=== PATIENT | male | born 1945 | race Caucasian/White ===

== ENCOUNTER 2023-01-06 11:05 | Inpatient (IN) ==
--- NOTE | 2022-12-18 14:38 | PAT Medication Instructions ---
Medication Instructions Date of Service December 18, 2022 Home Medications atorvastatin 20 mg tablet 20 mg PO PM hydrochlorothiazide 25 mg tablet 25 mg PO QAM multivitamin 1 tab PO QAM omega 0-zix-nor-fish oil 1,000 mg (120 mg-180 mg) capsule (Fish Oil) 1 cap PO QAM valsartan 80 mg tablet (Diovan) 160 mg PO QAM STOP taking 2 weeks before surgery omega 3-qoy-ymh-fish oil 1,000 mg (120 mg-180 mg) capsule (Fish Oil) 1 cap PO QAM DO NOT take the morning of surgery hydrochlorothiazide 25 mg tablet 25 mg PO QAM multivitamin 1 tab PO QAM valsartan 80 mg tablet (Diovan) 160 mg PO QAM Take evening before surgery atorvastatin 20 mg tablet 20 mg PO PM OTHERWISE NOTHING TO EAT OR DRINK AFTER MIDNIGHT Other Notes If you have any questions please call us at [phone] or [phone] or [phone] or [phone]
--- NOTE | 2022-12-23 14:38 | Anesthesiology Consultation ---
Date of Service December 23, 2022 Assessment & Plan (1) Encounter for pre-operative examination: - check BMP STAT am DOS. - anemia, creatinine 1.5 with no previous comparison or listed CKD. Case discussed in detail with Dr. Baxter who advised pt is acceptable to proceed from his standpoint, advised repeat BMP am DOS. PAT testing to be faxed to PCP for continuity of care. - potential difficult intubation: s/p cervical spine fusion. Chart Review Chart Review: Acceptable Risk for Surgery and Patient seen in Pre Admission Testing Teaching & Discussion Pre-Anesthesia Teaching/Discussion Notes: Instructed NPO after midnight before surgery, except medications with 15 cc of water. Medication instructions provided according to the PAT guidelines. History Surgery Operation Date: 01/06/23 12:55 Proposed Procedures p L4-L5 Decompression and Fusion, Spinal Cord Monitoring - Jorge A Garcia DO Height/Weight Height: 6 ft Weight: 102.5 kg Allergies Allergy/AdvReac Type Severity Reaction Status Date / Time No Known Allergies Allergy Verified 12/18/22 13:41 Medications Home Medications Medication Instructions Recorded Confirmed Last Taken atorvastatin 20 mg tablet 20 mg PO PM 12/18/22 12/18/22 Unknown hydrochlorothiazide 25 mg tablet 25 mg PO QAM 12/18/22 12/18/22 Unknown multivitamin 1 tab PO QAM 12/18/22 12/18/22 Unknown omega 2-nsj-dhd-fish oil 1,000 mg 1 cap PO QAM 12/18/22 12/18/22 Unknown (120 mg-180 mg) capsule (Fish Oil) valsartan 80 mg tablet (Diovan) 160 mg PO QAM 12/18/22 12/18/22 Unknown Past Medical History Medical History (Updated 12/23/22 @ 14:50 by Argelia Quezada PA-C) Degenerative disc disease History of blood transfusion post-op > 20 yrs ago Hyperlipidemia Hypertension controlled, stable per pt Kidney stones hx of Patient denies h/o stroke, seizures, heart attack, heart failure, DM, blood clots or blood transfusions. Exercise / Class Metabolic Activity II 4-5 Yardwork/Stairs/Walk up hill (denies chest discomfort or shortness of breath with 1 FOS) Past Family History Family History Aunt Diabetes Past Surgical History Surgical History History of appendectomy History of carpal tunnel release bilat History of cataract surgery bilat History of cholecystectomy History of colonoscopy History of esophagogastroduodenoscopy (EGD) History of repair of rotator cuff right History of tonsillectomy History of tooth extraction History of total knee replacement bilat Hx of elbow surgery left Hx of inguinal hernia repair bilat Hx of surgical amputation of finger left middle S/P cervical spinal fusion ROM limited side to side, up and down is okay Past Anesthesia History No Hx of Anesthesia Complications and No Family Hx of Anesthesia Complications History of PONV No Hx of PONV and No Hx of Motion Sickness Social History Smoking Status: Former smoker Do You Dip or Chew Tobacco: No (hx of 1981) Smoking End Date: 1981 Hx Alcohol Use: No Alcohol Intake Frequency Comment: quit 1981 Hx Substance Use: No substance use type: does not use Review of Systems Patient denies chest pain, shortness of breath, dyspnea on exertion, snoring, witnessed apneas, reflux, fever, chills, cough, wheezing, or palpitations. Physical Exam Vital Signs Vitals BP 156/72 P 76 TEMP 97.9 SP02 97% on RA RESP 18 Physical Full cervical extension range of motion without pain TMD 3.5 finger breadths Mallampati Score 3 Dentition: edentulous, full upper and lower dentures Lungs: normal respiratory effort. Clear throughout to auscultation, no adventitious breath sounds Cardiac: regular rate and rhythm, no murmurs noted Carotid arteries: negative bruit bilat Lab Results Anesthesia Preop Results Results Anesthesia Widget: WBC 8.18 K/ul (4.8-10.8) 12/23/22 Hgb 11.8 g/dl (14.0-18.0) L 12/23/22 Hct 34.1 % (42.0-52.0) L 12/23/22 Plt 169 K/uL (130-400) 12/23/22 Na 141 mmol/L (136-145) 12/23/22 K 4.0 mmol/L (3.5-5.1) 12/23/22 Cl 112 mmol/L (98-107) H 12/23/22 CO2 22 mmol/L (21-32) 12/23/22 BUN 31 mg/dl (6-23) H 12/23/22 Creat 1.56 mg/dl (0.6-1.4) H 12/23/22 Glucose Level 130 mg/dl (70-99(Fasting)) H 12/23/22 PT 10.5 Seconds (9.0-12.0) 12/23/22 PTT 26.7 Seconds (21.0-31.0) 12/23/22 INR 1.0 (0.9-1.1) 12/23/22 Urine Color Yellow 12/23/22 Urine Appearance Clear (Clear) 12/23/22 Urine pH 5.0 (4.5-7.5) 12/23/22 Urine Specific [place] 1.017 (1.000-1.030) 12/23/22 Urine Protein 2+ (Negative) H 12/23/22 Urine Glucose (UA) Negative (Negative) 12/23/22 Urine Ketones Negative (Negative) 12/23/22 Urine Blood 1+ (Negative) H 12/23/22 Urine Nitrite Negative (Negative) 12/23/22 Urine Bilirubin Negative (Negative) 12/23/22 Urine Urobilinogen Negative (Negative) 12/23/22 Urine Leukocyte Esterase Negative (Negative) 12/23/22 Urine WBC (Auto) 1-5 /hpf (0-5) 12/23/22 Urine RBC (Auto) 0-4 /hpf (0-4) 12/23/22 Urine Hyaline Casts (Auto) 1-5 /lpf (0-5) 12/23/22 Urine Epithelial Cells (Auto) 5-10 /lpf (0-5) H 12/23/22 Urine Bacteria (Auto) Negative (Negative) 12/23/22 Blood Type A Positive 12/23/22 Antibody Screen NEGATIVE 12/23/22 Testing Electrocardiogram Date: 12/23/22 NSR, rate 70 bpm Left anterior fascicular block Nonspecific T wave abnormality anterolateral leads No significant change was found in comparison to 12/02/19 EKG Chest X-Ray Date: 12/23/22 The heart is mildly enlarged noting atherosclerotic calcification of the thoracic aorta. The pulmonary vascular is noncongested. Chronic interstitial thickening is similar to previous. There is mild bibasilar scarring/atelectasis. The lungs and pleural spaces are otherwise clear. There is no pneumothorax. The skeletal structures are osteopenic. The bony thorax appears intact. Degenerative change is noted in the thoracic spine. Fusion hardware is seen in the lower cervical spine. IMPRESSION: Mild cardiomegaly with no active disease in the chest. COVID-19 Risk Screen Screening Information COVID-19 Screen Date: 12/23/22 Exposure 21 Days Family/Household +COVID Last 21 Days: No Exposure 10 Days Any COVID Exposure Last 10 Days: No Symptoms Last 10 Days Experienced COVID Sx Last 10 Days: No + COVID 0-90 Days COVID + in Last 0-90 Days: No
[~2023-01-06 11:05] MED LIST: ACETAMINOPHEN 500 MG TAB PO SCH; CeleBREX 200 MG CAP PO SCH; GABAPENTIN 300 MG CAP PO SCH; LR 15ML/HR IV SCH; ceFAZolin 2000MG 2,000 MG/15 ML SYR IV SCH
[2023-01-06] MEDS ORDERED: ATROPINE SULFATE 0.1 MG/ML 10ML SYR IV PRN (12:35)
[2023-01-06] MEDS ORDERED: ePHEDrine sulfate 50 MG/ML AMP IV PRN (12:35)
[2023-01-06] MEDS ORDERED: ONDANSETRON INJ 2 MG/ML 2 ML VIAL IV PRN ×2 (12:35→17:16)
[2023-01-06] MEDS ORDERED: HYDROmorphone INJ 1 MG/ML SYRINGE IV PRN ×2 (12:35→17:16)
[2023-01-06] MEDS ORDERED: PROPOFOL IV EMULSION 10 MG/ML 20 ML VIAL IV ONE (13:14)
[2023-01-06] MEDS ORDERED: fentaNYL citrate PF 100 MCG/2 ML VIAL ONE (13:14)
[2023-01-06] MEDS ORDERED: LIDOCAINE 2% MPF LOCAL 5 ML VIAL ONE (13:14)
[2023-01-06] MEDS ORDERED: ROCURONIUM BROMIDE 10 MG/ML 5 ML VIAL IV ONE ×5 (13:15)
[2023-01-06 13:20] LABS: BUN Creatinine Ratio 19.3 (10-20); Calcium 8.6 mg/dl (8.6-10.3); Creatinine Clr Calc Pharmacy 49.7 ml/min; Potassium 4.4 mmol/L (3.5-5.1)
--- NOTE | 2023-01-06 13:31 | History & Physical Bridge Note ---
Date of Service January 06, 2023 History & Physical Bridge Note I have examined the patient, reviewed the History & Physical and in the interval since the performance of the History & Physical I have noted the following changes of clinical significance: no changes noted
--- NOTE | 2023-01-06 13:33 | History & Physical Report ---
Date of Service January 06, 2023 Assessment & Plan (1) Neurogenic claudication due to lumbar spinal stenosis: Plan: Lumbar decompression and fusion L5-S1, possible L4-L5 History of Present Illness Chief Complaint: Back and bilateral leg pain Primary Care Provider: Omari Casiano This is a 69-year-old male who presents with chronic persistent back and leg pain after failing course of nonoperative care is here for surgical invention. Allergies Allergy/AdvReac Type Severity Reaction Status Date / Time No Known Allergies Allergy Verified 01/06/23 11:51 Home Medications Medication Instructions Recorded Confirmed Type atorvastatin 20 mg tablet 20 mg PO PM 12/18/22 01/06/23 History hydrochlorothiazide 25 mg tablet 25 mg PO QAM 12/18/22 01/06/23 History multivitamin 1 tab PO QAM 12/18/22 01/06/23 History omega 4-bet-swq-fish oil 1,000 mg 1 cap PO QAM 12/18/22 01/06/23 History (120 mg-180 mg) capsule (Fish Oil) valsartan 80 mg tablet (Diovan) 160 mg PO QAM 12/18/22 01/06/23 History Past Med/Surg History Medical History (Updated 01/06/23 @ 13:32 by Jorge A Garcia DO) Degenerative disc disease History of blood transfusion post-op > 20 yrs ago Hyperlipidemia Hypertension controlled, stable per pt Kidney stones hx of Surgical History History of appendectomy History of carpal tunnel release bilat History of cataract surgery bilat History of cholecystectomy History of colonoscopy History of esophagogastroduodenoscopy (EGD) History of repair of rotator cuff right History of tonsillectomy History of tooth extraction History of total knee replacement bilat Hx of elbow surgery left Hx of inguinal hernia repair bilat Hx of surgical amputation of finger left middle S/P cervical spinal fusion ROM limited side to side, up and down is okay Family History Aunt Diabetes Social History Smoking Status: Former smoker Smoking End Date: 1981; Second Hand Exposure: No; Do You Dip or Chew Tobacco: No (hx of 1981); Tobacco Cessation Education Requested by Patient: No Hx Alcohol Use: No Hx Substance Use: No Preferred Language: Maltese Communication Ability: Effective Serology Teacher Required: No Beliefs That Will Affect Care: None Current Living Situation: Spouse Other Information That Helps Us Care for You: No Feels Safe at Home: Yes Safety Concerns: Feels Safe At This Time Assistive Devices: Denture - Upper, Denture - Lower and Glasses Physical Exam Physical Exam: Patient is alert and oriented Heart regular rhythm Lungs clear Results & Data Results & Data Vital Signs (Past 12 Hours) Vital Signs Temp Pulse Resp BP Pulse Ox O2 Del Method 01/06/23 11:57 36.5 C 64 18 182/98 H 99 Room Air
[2023-01-06] MEDS ORDERED: BUPIVACAINE/EPINEPHRINE 0.25% 1:200,000 30 ML VIAL ONE (13:50)
[2023-01-06] MEDS ORDERED: ceFAZolin 330 MG/ML 1 GM VIAL ONE (13:50)
[2023-01-06] MEDS ORDERED: FLOSEAL HEMOSTATIC MATRIX 10ML TOP ONE (14:38)
[2023-01-06] MEDS ORDERED: ePHEDrine sulfate 50 MG/ML SYR ONE (14:48)
[2023-01-06] MEDS ORDERED: HYDROmorphone INJ 2 MG/ML SYR/VIAL ONE (14:59)
[2023-01-06] MEDS ORDERED: SUGAMMADEX SODIUM 200 MG/2 ML VIAL IV ONE (15:27)
--- NOTE | 2023-01-06 15:36 | Operative Report ---
Post Operative Report Pre & Post Diagnosis Operation Date: 01/06/23 12:55 Pre-Op Diagnosis: Spinal Stenosis, Lumbar Region with Neurogenic Post-Op Diagnosis: Spinal Stenosis, Lumbar Region with Neurogenic I identified the patient and participated in the time-out.: Yes Procedure Operation Date: 01/06/23 12:55 Actual Procedures #1 lumbar decompression bilaterally facetectomies and foraminotomies L4-L5 L5- S1. #2 posterior spinal fusion L4 S1. #3 placement posterior instrumentation L5-S1. #4 interbody fusion L5-S1. #5 placement of Spira 15 x 26 mm at L5-S1. #6 placement locally harvested morselized autograft in the posterior gutters. #7 placement of I factor combined the test interbody space and posterior gutters. Surgeon Jorge A Garcia, Road Advisor Betsy Sheth Estimated Blood Loss 350 Findings Consistent with Post-Op Diagnosis Specimens None Indications This is a 69-year-old male who presents above-mentioned diagnosis after failing course of nonoperative care is here for the above-mentioned procedure. Description of Procedure Patient was met with identified informed consent obtained. Patient was then taken to the operative suite underwent a patient placed in a prone position on the [facility] top Elian frame. All bony prominences well-padded eyes ins pected to ensure no external pressure placed upon the. This point the lumbar spine was prepped and draped in a sterile fashion. Sharp dissection with assistance of Bovie cautery performed down to and exposing the lamina transverse processes of L5 and the sacral ala. From caudal cephalad fashion complete laminectomy L5 partial laminectomy L4 was performed including bilateral medial facetectomies and foraminotomies addressing severe spinal stenosis. Pedicle screws then placed in L5 and S1 levels bilaterally with assistance of fluoroscopy and the properly sized melany placed. Bilateral transforaminal approach and right complete discectomy of L5-S1 was performed endplates curetted to subcortically bone and a 15 x 26 mm Spira cage with I factor tapped in position. The rods were then locked in final position bilaterally. The transverse processes of L5 and sacral ala burred to subcortical bleeding bone. I factor amount of the test and locally harvested morselized autograft placed in the posterior gutters. 15 round FANI drain inserted. The incision was then closed with 1 Vicryl the fascia 2-0 Vicryl subcutaneously and 4 Monocryl for final skin closure. Steri-Strips and sterile dressing placed. Patient awakened taken to PACU in stable condition. Please note spinal cord monitoring was utilized at the procedure no changes noted. Lastly Betsy Sheth was present at the entire surgery involved the patient positioning complex portions of the surgery and final skin closure. I attest to the content of the Intraoperative Record and any orders documented therein. Any exceptions are noted below.
[2023-01-06] MEDS ORDERED: DEXAMETHASONE SOD INJ 4 MG/ML VIAL ONE (15:52)
[2023-01-06] MEDS ORDERED: ONDANSETRON INJ 2 MG/ML 2 ML VIAL ONE (15:53)
[2023-01-06] MEDS: fentaNYL citrate PF 100 MCG/2 ML VIAL IV PRN ×4 (16:01→16:18)
--- NOTE | 2023-01-06 16:12 | Anesthesiology Progress Note ---
Date of Service January 06, 2023 Anesthesia Post Procedure Vital Signs Vital Signs: Temp Pulse Pulse Resp BP BP Pulse Ox 01/06/23 16:05 66 16 139/71 100 01/06/23 15:55 75 22 126/67 99 01/06/23 15:48 36.1 C L 76 12 153/77 H 98 01/06/23 11:57 36.5 C 64 18 182/98 H 99 O2 Del Method O2 Flow Rate 01/06/23 16:05 Oxymask 5 01/06/23 15:55 Oxymask 5 01/06/23 15:48 Oxymask 5 01/06/23 11:57 Room Air Pain Intensity Back: Pain Intensity: 5 Transfer of Care Handoff Completed per policy Notes Mental Status: alert / awake / arousable and participated in evaluation Patient Amnestic to Procedure: Yes Nausea / Vomiting: adequately controlled Pain: adequately controlled Airway Patency, RR, SpO2: stable & adequate BP & HR: stable & adequate Hydration State: stable & adequate Anesthetic Complications: no major complications apparent and Pt Satisfied with anesthetic care
[2023-01-06] MEDS ORDERED: METOCLOPRAMIDE HCL INJ 5 MG/ML 2 ML VIAL IV PRN (17:16)
[2023-01-06] MEDS ORDERED: DO NOT ADMINISTER PNEUMOCOCCAL VACCINE PRN (17:16)
[2023-01-06] MEDS ORDERED: MAGNESIUM HYDROXIDE SUSP 30 ML UDC PO PRN (17:16)
[2023-01-06] MEDS ORDERED: DO NOT ADMINISTER FLU VACCINE PRN (17:16)
[2023-01-06] MEDS ORDERED: ALUMINUM/MAGNESIUM SUSP 30 ML UDC PO PRN (17:16)
[2023-01-06] MEDS ORDERED: SOD PHOSPHATE/SOD BIPHOSPHATE ENEMA 132 ML BTL PR PRN (17:16)
[2023-01-06] MEDS ORDERED: traMADol HCL 50 MG TABLET PO PRN (17:16)
[2023-01-06] MEDS ORDERED: LORazepam 0.5 MG TAB PO PRN (17:16)
[2023-01-06] MEDS ORDERED: ACETAMINOPHEN 500 MG TAB PO PRN (17:16)
[2023-01-06] MEDS ORDERED: ACETAMINOPHEN 1,000 MG/100 ML VIAL IV PRN (17:16)
[2023-01-06] MEDS ORDERED: diphenhydrAMINE Capsule 25 MG CAP PO PRN (17:16)
[2023-01-06] MEDS ORDERED: hydrOXYzine HCl 25 MG TAB PO PRN (17:16)
[2023-01-06] MEDS ORDERED: ONDANSETRON 4 MG OD TAB PO PRN (17:16)
[2023-01-06] MEDS ORDERED: FAMOTIDINE 20 MG TAB PO PRN (17:16)
[2023-01-06] MEDS ORDERED: LORazepam 2 MG/1 ML VIAL IV PRN (17:16)
[2023-01-06] MEDS ORDERED: bisacodyL 10 MG SUPP PR PRN (17:16)
[2023-01-06] MEDS ORDERED: PROMETHAZINE HCL 12.5 MG in SODIUM CHLORIDE 0.9% 50 ML IV PRN (17:16)
[2023-01-06] MEDS ORDERED: HYDROmorphone INJ 0.5 MG/0.5 ML SYR IV PRN (17:16)
[2023-01-06] MEDS ORDERED: NALOXONE HCL 0.4 MG/1 ML VIAL/CARP IV PRN (17:16)
[2023-01-06] MEDS: LACTATED RINGER'S 1,000 ML IV SCH (18:13)
--- NOTE | 2023-01-06 19:19 | Hospitalist Consultation ---
Date of Consultation January 06, 2023 Assessment & Plan (1) Neurogenic claudication due to lumbar spinal stenosis: 77 year old male PmHx essential HTN, HLD, CKD stage 3a, hx of urinary calculi admitted for lumbar decompression and fixation surgery. HTN: -Continue home hydrochlorothiazide 25mg qAM and valsartan 160mg qAM. -continue to monitor. HLD: -Continue home atorvastatin 20mg qPM. Can hold on fish oil while inpatient. CKD stage 3a: -BMP with eGFR of 44, creat 1.50. At baseline. -Can continue fluids for 2 bags post op. Neurogenic claudication due to lumbar spinal stenosis: -Management per surgical team. -Tylenol PRN for mild pain, Dilaudid PRN for mod-severe pain. F/E/N/GI: Advance as tolerated. Zofran PRN for nausea, bowel regimen post op, famotidine 20mg q12h. Code status: full code DVT Prophylaxis: Per surgical team. Dispo: med/surg. (2) Hyperlipidemia: (3) Hypertension: (4) Stage 3a chronic kidney disease (CKD): Supervising Physician Co-Signing Physician Notes Patient seen and examined, chart reviewed, case discussed with Dr. Berkowitz and I agree with the assessment and plan as above. In brief, patient is a 77yo male with history of HTN, HLP, CKD presenting with progressive back pain secondary to spinal stenosis s/p lumbar decompression, facetectomies and foramintomies and fusion performed by Dr. Garcia on 01/06/23. The surgery was well tolerated with no immediate complications identified. EBL 350mL. Patient seen in room 357. He is resting comfortably, NAD. Reports that his sunshine n is well controlled. He has not yet had a BM or ambulated. On exam he is afebrile, HD stable, NAD FANI drain in place Heart - +S1/S2, regular Lungs -CTA anteriorly Abd - Soft, NT/ND Ext - warm, well perfused, no clubbing/cyanosis or edema Labs and images reviewed Assessment/plan HTN - well controlled. continue pain control per primary service. Resume Valsartan and HCTZ HLP - chronic. . Continue Atorvastatin CBC and BMP ordered for AM 01/07/23 History of Present Illness Reason for Consultation: Medical Management Requesting Physician: Dr. Jorge A Garcia Attending Physician: Jorge A Garcia DO History of Present Illness Issac is a 77 year old male w/ PmHx essential HTN, HLD, CKD stage 3a, hx of urinary calculi admitted for lumbar decompression to L5-S1, possible L4-L5 by spine surgery. Patient has past history of chronic persistent back and leg pain and had undergone conservative treatment outpatient and failed improvement. He underwent decompression and fusion interbody cage L5-S1, L4-L5. Patient seen at the bedside feeling some pain at the lower back however tolerating well. Denies fevers, chills, nausea. Allergies Allergy/AdvReac Type Severity Reaction Status Date / Time No Known Allergies Allergy Verified 01/06/23 11:51 Home Medications Medication Instructions Recorded Confirmed Type atorvastatin 20 mg tablet 20 mg PO PM 12/18/22 01/06/23 History hydrochlorothiazide 25 mg tablet 25 mg PO QAM 12/18/22 01/06/23 History multivitamin 1 tab PO QAM 12/18/22 01/06/23 History omega 9-xnc-zga-fish oil 1,000 mg 1 cap PO QAM 12/18/22 01/06/23 History (120 mg-180 mg) capsule (Fish Oil) valsartan 80 mg tablet (Diovan) 160 mg PO QAM 12/18/22 01/06/23 History Patient History Medical History Degenerative disc disease History of blood transfusion post-op > 20 yrs ago Hyperlipidemia Hypertension controlled, stable per pt Kidney stones hx of Surgical History History of appendectomy History of carpal tunnel release bilat History of cataract surgery bilat History of cholecystectomy History of colonoscopy History of esophagogastroduodenoscopy (EGD) History of repair of rotator cuff right History of tonsillectomy History of tooth extraction History of total knee replacement bilat Hx of elbow surgery left Hx of inguinal hernia repair bilat Hx of surgical amputation of finger left middle S/P cervical spinal fusion ROM limited side to side, up and down is okay Family History Aunt Diabetes Social History Smoking Status: Former smoker Smoking End Date: 1981; Second Hand Exposure: No; Do You Dip or Chew Tobacco: No (hx of 1981); Tobacco Cessation Education Requested by Patient: No Hx Alcohol Use: No Hx Substance Use: No Preferred Language: Fijian Communication Ability: Effective Telecommunications Manager Required: No Beliefs That Will Affect Care: None Current Living Situation: Spouse Other Information That Helps Us Care for You: No Feels Safe at Home: Yes Safety Concerns: Feels Safe At This Time Assistive Devices: Denture - Upper, Denture - Lower and Glasses Review of Systems Review of Systems: As per HPI. Physical Exam Constitutional: WD/WN, vitals as above Eyes: PERRL, conjunctivae normal, anicteric sclerae Respiratory: normal respiratory effort, lungs clear to auscultation Cardiovascular: RRR, no murmur, no edema Gastrointestinal (Abdomen): normal bowel sounds, soft, nontender, no hepatosplenomegaly Psychiatric: A+Ox3, euthymic affect Results & Data Results & Data Vital Signs (Past 12 Hours) Vital Signs Temp Pulse Pulse Resp BP BP Pulse Ox 01/06/23 18:25 36.4 C L 80 14 153/74 H 95 01/06/23 17:55 36.4 C L 75 16 149/75 H 94 01/06/23 17:40 61 15 148/68 H 96 01/06/23 17:25 67 14 139/72 97 01/06/23 17:10 64 12 143/71 H 96 01/06/23 16:55 63 12 140/66 100 01/06/23 16:45 36.4 C L 73 13 125/59 L 97 01/06/23 16:35 64 16 138/69 96 01/06/23 16:25 70 12 133/65 87 L 01/06/23 16:15 71 16 143/65 H 98 01/06/23 16:05 66 16 139/71 100 01/06/23 15:55 75 22 126/67 99 01/06/23 15:48 36.1 C L 76 12 153/77 H 98 01/06/23 11:57 36.5 C 64 18 182/98 H 99 O2 Del Method O2 Flow Rate 01/06/23 18:25 Nasal Cannula 2 01/06/23 17:55 Room Air 01/06/23 17:40 Nasal Cannula 2 01/06/23 17:25 Nasal Cannula 2 01/06/23 17:10 Nasal Cannula 2 01/06/23 16:55 Nasal Cannula 2 01/06/23 16:45 Nasal Cannula 2 01/06/23 16:35 Nasal Cannula 2 01/06/23 16:25 Room Air 01/06/23 16:15 Oxymask 5 01/06/23 16:05 Oxymask 5 01/06/23 15:55 Oxymask 5 01/06/23 15:48 Oxymask 5 01/06/23 11:57 Room Air Resident Activity Tracking Resident Involvement: Resident Care Provided Care Provided: Adult Hospital Medicine
--- NOTE | 2023-01-06 20:02 | Fluoroscopy Report ---
FL lumbar spine 2-3V CLINICAL HISTORY: L5-S1 DECOMP AND FUSION COMPARISON STUDY: None. FLUOROSCOPY TIME: 20 seconds. Ka, r: 18 mGy FLUOROSCOPIC IMAGES: 2 FINDINGS: Fluoroscopy was provided during L5-S1 discectomy with interbody spacer placement, posterior decompression and bilateral pedicle screw fusion. IMPRESSION: Fluoroscopy provided during L5-S1 discectomy, posterior decompression and bilateral pedi keira screw fusion. ACT 112: Negative or not required by law. Electronically signed by: Partha Delgado M.D. 01/06/2023 8:00 PM
[2023-01-06] MEDS: DOCUSATE SODIUM/SENNA 50/8.6MG TAB PO SCH (22:49)
[2023-01-06] MEDS: ATORVASTATIN 20 MG TAB PO SCH (22:49)
[2023-01-06] MEDS: ceFAZolin 2000MG 2,000 MG/15 ML SYR IV SCH (22:50)
[2023-01-07] MEDS: LACTATED RINGER'S 1,000 ML IV SCH (00:08)
--- NOTE | 2023-01-07 05:01 | Billing Data ---
Date of Service January 06, 2023 Coding Level of Care Code 05561 IN/OBS CONSULT LVL 3,45M
[2023-01-07] MEDS ORDERED: POLYETHYLENE (MIRALAX) 17 GM PACK PO SCH (06:00)
[2023-01-07] MEDS: ceFAZolin 2000MG 2,000 MG/15 ML SYR IV SCH (06:03)
[2023-01-07 06:23] LABS: BUN Creatinine Ratio 21.9 (10-20); Est GFR (African American) 52.6 ml/min; Est GFR (Non-African American) 45.4 ml/min; Potassium 4.8 mmol/L (3.5-5.1)
[2023-01-07 06:34] LABS: Basophils # (auto) 0.01 K/uL (0-0.2); Basophils % (auto) 0.1 %; Hematocrit (blood only) 30.6 % (42.0-52.0); Hemoglobin 10.4 g/dl (14.0-18.0); Immature Granulocytes # (auto) 0.02 K/uL (0.01-0.20); Immature Granulocytes % (auto) 0.2 %; Lymphocytes # (auto) 0.53 K/uL (1.2-3.4); Lymphocytes % (auto) 5.7 %; Mean Corpuscular Volume 91.1 fL (80.0-100.0); Mean Platelet Volume 10.8 fL (9.4-12.4); Monocytes # (auto) 0.49 K/uL (0.11-0.59); Monocytes % (auto) 5.3 %; Neutrophils # (auto) 8.25 K/uL (1.40-6.50); Neutrophils % (auto) 88.7 %; Platelet Count 154 K/uL (130-400); RDW Standard Deviation 42.8 fL (36.4-46.3); Red Blood Count 3.36 M/uL (4.70-6.10)
--- NOTE | 2023-01-07 08:52 | Orthopedic Progress Note ---
Date of Service January 07, 2023 Assessment & Plan (1) Neurogenic claudication due to lumbar spinal stenosis: Plan: Issac is postoperative day 1 status post TLIF L5-S1. He will start physical therapy today. Maintain FANI drain. Continue with pain control. DVT prophylaxis is in the form of teds and SCDs. Anticipate discharge home within the next day or 2. Admission and Anticipated Discharge Date Admission Date: January 06, 2023 Sanjeev Davenport is postoperative day 1 status post TLIF L5-S1. He had an uneventful evening. H&H are 10.4 and 30.6 respectively this morning. FANI drain output last shift was 70 cc. He is voiding without issue. Review of Systems Review of Systems: All systems reviewed & are unremarkable except as noted in HPI & below Physical Exam Physical Exam: He is lying in bed in no acute distress Alert and oriented x3 Lumbar dressing is clean dry intact with functioning FANI drain Calf soft nontender bilaterally Strength intact bilateral lower extremities Results & Data Vital Signs (Past 12 Hours) Vital Signs Temp Pulse Pulse Resp BP BP Pulse Ox 01/07/23 07:42 36.4 C L 77 18 145/76 H 94 01/07/23 03:30 36.8 C 73 18 133/64 94 01/06/23 23:02 01/06/23 21:50 36.6 C 88 18 133/73 96 O2 Del Method 01/07/23 07:42 Room Air 01/07/23 03:30 Room Air 01/06/23 23:02 Room Air 01/06/23 21:50 Room Air
--- NOTE | 2023-01-07 09:03 | Hospitalist Progress Note ---
Date of Service January 07, 2023 Assessment & Plan (1) Neurogenic claudication due to lumbar spinal stenosis: Plan: 77 year old male PmHx essential HTN, HLD, CKD stage 3a, hx of urinary calculi admitted for lumbar decompression and fixation surgery. POD#1 #1 lumbar decompression bilaterally facetectomies and foraminotomies L4-L5 L5-S1. #2 posterior spinal fusion L4 S1. #3 placement posterior instrumentation L5-S1. #4 interbody fusion L5-S1. #5 placement of Spira 15 x 26 mm at L5-S1. #6 placement locally harvested morselized autograft in the posterior gutters. #7 placement of I factor combined the test interbody space and posterior gutters. EBL 350cc Hgb 11.8--> 10.4, acute blood loss anemia from surgery as well as dilutional component from IVF post-op Pain management/bowel regimen/PT/OT per primary service DVT proph: SCDs/mery hose, chemical contraindicated w/ back surgery Per patient, planning for d/c in the next 24-48 hours (2) Hypertension: Plan: HTN: Chemistry reviewed and kidney function at baseline BP stable 145/76 and can continue hydrochlorothiazide 25mg, valsartan 160mg (3) Hyperlipidemia: Plan: HLD: Continue home atorvastatin 20mg qPM. Can hold on fish oil while inpatient. (4) Stage 3a chronic kidney disease (CKD): Plan: CKD stage 3a: Kidney function acceptable, at baseline, 1.46. Did get 2L IVF post-op Monitor BMP Plan Thank you for allowing hospitalist service to participate in the care of Mr Ruiz. Hospitalist service will sign off at this time. Please call with any questions/concerns. Admission and Anticipated Discharge Date Admission Date: January 06, 2023 Supervising Physician Co-Signing Physician Notes The patient was not seen by me. The chart was reviewed. Case discussed with CARLOS Bills. Agree with assessment and plan Subjective Evaluated this afternoon, at bedside. Doing well. pain controlled. Denies passing gas but not having any abdominal pain. Has lots of bowel sounds on exam. FANI drain emptied this morning , not since. Patient states hoping to monitor overnight and dc in next 24-48 hours. brought in clothes to change into -- asked to ensure RN present to ensure no twisting/injury at first. Questions/concerns addressed at this time. Review of Systems Review of Systems: All systems reviewed & are unremarkable except as noted in HPI & below Physical Exam Physical Exam: General: WD/WN male sitting up in bed, at bedside, NAD HEENT: head normocephalic, atraumatic, trachea midline Resp: CTA, no w/c, on room air CV: RRR, no significant m/r/g, no pitting edema, stockings in place, pulses palpable GI: +BS throughout, slight distension, nontender, no guarding : no gandara MSK/Neuro: follows commands, lower extremity strength intact bilaterally, slight decrease dorsiflexion 4/5 compared to 5/5 on the right. pulses palpable, calves nontender, FANI w/ approx 40cc bloody drainage Psych: AOx3, pleasant and cooperative Results & Data Results & Data Vital Signs (Past 12 Hours) Vital Signs Temp Pulse Pulse Resp BP BP Pulse Ox 01/07/23 07:42 36.4 C L 77 18 145/76 H 94 01/07/23 03:30 36.8 C 73 18 133/64 94 01/06/23 23:02 01/06/23 21:50 36.6 C 88 18 133/73 96 O2 Del Method 01/07/23 07:42 Room Air 01/07/23 03:30 Room Air 01/06/23 23:02 Room Air 01/06/23 21:50 Room Air Laboratory Results 01/07/23 01/07/23 01/06/23 Range/Units 05:34 05:34 12:37 WBC 9.30 (4.8-10.8) K/ul RBC 3.36 L (4.70-6.10) M/uL Hgb 10.4 L (14.0-18.0) g/dl Hct 30.6 L (42.0-52.0) % MCV 91.1 (80.0-100.0) fL MCH 31.0 (25.0-34.0) pg MCHC 34.0 (32.0-36.0) g/dL RDW Std Deviation 42.8 (36.4-46.3) fL RDW Coeff of Jelly 13.0 (11.5-14.5) % Plt Count 154 (130-400) K/uL MPV 10.8 (9.4-12.4) fL Immature Gran % (Auto) 0.2 % Neut % (Auto) 88.7 % Lymph % (Auto) 5.7 % [place] % (Auto) 5.3 % Eos % (Auto) 0.0 % Baso % (Auto) 0.1 % Neut # (Auto) 8.25 H (1.40-6.50) K/uL Lymph # (Auto) 0.53 L (1.2-3.4) K/uL [place] # (Auto) 0.49 (0.11-0.59) K/uL Eos # (Auto) 0.00 (0-0.50) K/uL Baso # (Auto) 0.01 (0-0.2) K/uL Immature Gran # (Auto) 0.02 (0.01-0.20) K/uL Sodium 140 141 (136-145) mmol/L Potassium 4.8 4.4 (3.5-5.1) mmol/L Chloride 110 H 111 H (98-107) mmol/L Carbon Dioxide 23 26 (21-32) mmol/L Anion Gap 7 4 (3-11) BUN 32 H 29 H (6-23) mg/dl Creatinine 1.46 H 1.50 H (0.6-1.4) mg/dl Est Cr Clr Drug Dosing 51.0 49.7 ml/min Est GFR ( Amer) 52.6 51.0 ml/min Est GFR (Non-Af Amer) 45.4 44.0 ml/min BUN/Creatinine Ratio 21.9 H 19.3 (10-20) Glucose 143 H 105 H (70-99(Fasting)) mg/dl Calcium 8.0 L 8.6 (8.6-10.3) mg/dl PG Care Time/CCT Total # of Minutes Spent Total Time Spent with Patient: Total time spent is greater than 50% in coordination of care (as documented) at patient's floor/unit and/or counseling patient: Coding Level of Care Code 89947 SUB INP/OBS CARE 2/35MIN Diagnoses Neurogenic claudication due to lumbar spinal stenosis M48.062 Hypertension I10 Hyperlipidemia E78.5 Stage 3a chronic kidney disease (CKD) N18.31
[2023-01-07] MEDS: hydroCHLOROthiazide 25 MG TAB PO SCH (09:38)
[2023-01-07] MEDS: MULTIVITAMIN TAB PO SCH (09:38)
[2023-01-07] MEDS: VALSARTAN 80 MG TAB PO SCH (09:38)
[2023-01-07] MEDS: oxyCODONE HCL IR 5 MG TAB (IMMEDIATE RELEASE) PO PRN ×2 (16:53→21:11)
[2023-01-07] MEDS: DOCUSATE SODIUM/SENNA 50/8.6MG TAB PO SCH (21:10)
[2023-01-07] MEDS: ATORVASTATIN 20 MG TAB PO SCH (21:10)
[2023-01-08] MEDS: oxyCODONE HCL IR 5 MG TAB (IMMEDIATE RELEASE) PO PRN ×2 (06:48→10:58)
[2023-01-08] MEDS: hydroCHLOROthiazide 25 MG TAB PO SCH (07:53)
[2023-01-08] MEDS: VALSARTAN 80 MG TAB PO SCH (07:53)
[2023-01-08] MEDS: MULTIVITAMIN TAB PO SCH (07:54)
--- NOTE | 2023-01-08 08:56 | Discharge Summary ---
Date of Service January 08, 2023 Admission HPI Per Admitting Provider This is a 69-year-old male who presents with chronic persistent back and leg pain after failing course of nonoperative care is here for surgical invention. Principal Diagnosis Lumbar spinal stenosis with neurogenic location Discharge Data Allergies Allergy/AdvReac Type Severity Reaction Status Date / Time No Known Allergies Allergy Verified 01/06/23 11:51 Consultations 01/06/23 17:16 Consult Hospitalist Routine Procedures Performed Operation Date: 01/06/23 12:55 Actual Procedures p L5-S1 Decompression and Fusion, Interbody Cage L5-S1, Application of I-Factor and Vitoss, Spinal Cord Monitoring(Not Applicable) - Jorge A Garcia DO Ordered Studies 01/06/23 [place] lumbar spine 2-3V Routine Hospital Course (1) Neurogenic claudication due to lumbar spinal stenosis: Patient with lumbar decompression fusion tolerated this well stable orthopedic for postoperative pain postop day 1 is up and ambulating with improvement of his leg symptoms. Progressive postoperative day or 2. Pain well controlled. Kline bsequently discharged home. Discharge orders instructions from the chart for further review. Total Time Total Time Spent Total Time Spent (In Minutes): 20 minutes Discharge Plan Discharge Items Patient Disposition: Home - Self-Care Reason For Visit: Spinal Stenosis, Lumbar Region with Neurogenic Discharge Diagnosis: lumbar stenosis Activity: As commented below Non-emergency contact: Primary Care Provider Call non-emergency contact if: you have any medication questions Follow-up/Referrals: Omari Casiano MD [Primary Care Provider] - Diet: Regular Addtl Attending Provider Instructions: ACTIVITY RECOMMENDATIONS: SELF CARE INSTRUCTIONS AFTER THORACIC/LUMBAR FUSIONS 1. You may walk to your tolerance. It is good exercise for your legs and back. Expect some back and intermittent leg aches and pains. 2. You may perform "counter-top" level activities (make a sandwich, sky with a project, etc.). 3. No bending or lifting of more than 10 pounds or back twisting of any nature (roll like a log when turning in bed). 4. You may ride in a car for 20-30 minutes at a time. No driving until after your first visit with your doctor. 5. Frequent changes of position and restricting sitting to 30 minutes at a time will help limit the amount of back spasms and stiffness you may experience. 6. You may discontinue the use of ambulatory aids (cane, crutches, etc.) once your strength and confidence allow. 7. You may scuba diving teacher the shower and let water strike your incision when you arrive home at least once daily. Do not take a tub bath, sit in a hot tub or go into a swimming pool until after your first recheck in the office. SPECIAL CARE INSTRUCTIONS: VERY IMPORTANT TO READ AND REVIEW A. Your surgical incision has been closed with a cosmetic suture under the skin that will dissolve in about 6 weeks. In 14 days, you can use a pair of clean scissors and cut the suture that is left outside of the skin at the ends of your incision. 1. The small skin tapes can be removed 7 days after surgery if they have not fallen off by that point. 2. You may keep the wound open to air as much as possible to promote healing after post-op day number 5 unless told otherwise by your doctor. 3. If you think the wound looks like it is becoming infected (redness or worsening drainage) and/or you are experiencing fever, chill or worsening back pain and muscle spasms, contact the office so that we may evaluate you as soon as possible. B. Complications are uncommon, but please contact us if you have any signs or symptoms of: 1. wound infection (fever higher than 102.5 degrees F, redness, separation of wound, drainage, or increasing pain from the incision) 2. blood clots in legs (pain, swelling, redness and warmth in legs) 3. urinary tract infection (fever higher than 102.5 degrees F, burning upon urination or increased frequency of urination) 4. nerve problems (inability to walk on your toes or heels, numbness, loss of bowel or bladder control) 5. any other symptoms that concern you C. Please call the office at if you have any concerns or questions about your operation or recovery. D. No smoking! Smoking drastically decreases the chance of a solid fusion. E. Do not take any anti-inflammatory medications (Indocin, Advil, Motrin, Aspirin, Naprosyn, etc.) as these may inhibit the chance of a solid fusion. Tylenol is okay to take for pain. MANAGING PAIN AFTER SPINAL SURGERY 1. Narcotic medication is intended for short-term use and will be provided for surgical pain. Surgical pain usually lasts for a period of 4-6 weeks. Narcotic medication includes Percocet, Vicodin, Darvocet, Tylenol #3 or Lortab. 2. Longer-term pain is more appropriately treated with non-narcotic medication such as Tylenol ES. 3. Muscle spasm is not appropriately treated with narcotics. Muscle relaxers such as Soma, Flexeril or Skelaxin can be used along with Tylenol ES. 4. Remember that we all live with some "aches and pains". This is not unusual or uncommon after an injury or as we get older. a. Back pain is expected and may include muscle spasms for 4 to 6 weeks after surgery. The pain should gradually improve. If the pain worsens for no apparent reason, please contact the office. b. Intermittent leg pain may also be experienced and should not be concerned about unless it worsens for no apparent reason. If so, please contact the office. 5. We will provide appropriate medication within the normal guidelines of their prescribed use. We will also be very cautious and aware of potential abuse and extended duration of patients' medication needs. a. Pain medications are for your comfort and to assist with sleep and rest so that the tissue can heal. They are not provided in order to return to normal activity and should not be used through the day. To do so or worsening pain at night can result from ongoing tissue damage and development of tolerance to the prescribed medicine. 6. Please allow 2-3 days to process refills. Prescriptions will not be mailed but must be picked up at the office. FOLLOW UP VISIT: Keep your scheduled follow-up appointment. Any questions, please call the office at . Pending Studies at Discharge: No Stand-Alone Forms: My [facility] [employer], Smoking Cessation Medications and DC Order Prescriptions: New tramadol 50 mg tablet 50 mg PO Q6H PRN (Reason: pain, moderate) Qty: 30 0RF oxycodone 5 mg tablet 5 mg PO DAILY PRN (Reason: pain) Qty: 30 0RF Continued atorvastatin 20 mg Tablet 20 mg PO PM valsartan [Diovan] 80 mg Tablet 160 mg PO QAM hydrochlorothiazide 25 mg Tablet 25 mg PO QAM multivitamin Tablet 1 tab PO QAM omega 6-eqc-afi-fish oil [Fish Oil] 1,000 mg (120 mg-180 mg) Capsule 1 cap PO QAM Discharge Orders: Discharge Order (Routine); Ordered 01/08/23 Ordered By: Jorge A Garcia Admission Data Admit Date/Time: 01/06/23 15:38 Attending Provider: Jorge A Garcia Admit Provider: Jorge A Garcia Primary Care Provider: Omari Casiano
--- NOTE | 2023-01-08 09:14 | XRay Report ---
SINGLE VIEW CHEST CLINICAL HISTORY: Fever. FINDINGS: An AP, portable, upright chest radiograph is compared to study dated 12/23/2022. The heart is enlarged noting atherosclerotic calcification of the thoracic aorta. The pulmonary vasculature is no ncongested. Chronic interstitial thickening is similar to previous. There is mild bibasilar scarring/ atelectasis. The lungs and pleural spaces are otherwise clear. No pneumothorax is seen. The skeletal structures are osteopenic. The bony thorax is grossly intact. Fusion hardware is seen in the lower ce rvical spine. Arthritic change is seen in the shoulders. IMPRESSION: Cardiomegaly with no active disease in the chest. ACT 112: Negative or not required by law. Electronically signed by: Godfrey Martinez M.D. 01/08/2023 9:12 AM
[2023-01-08 09:48] LABS: Basophils # (auto) 0.03 K/uL (0-0.2); Basophils % (auto) 0.3 %; Eosinophils # (auto) 0.12 K/uL (0-0.50); Hematocrit (blood only) 29.9 % (42.0-52.0); Hemoglobin 10.3 g/dl (14.0-18.0); Immature Granulocytes # (auto) 0.04 K/uL (0.01-0.20); Immature Granulocytes % (auto) 0.3 %; Lymphocytes # (auto) 1.27 K/uL (1.2-3.4); Mean Corpuscular Hemoglobin 31.3 pg (25.0-34.0); Mean Corpuscular Hgb Conc 34.4 g/dL (32.0-36.0); Mean Corpuscular Volume 90.9 fL (80.0-100.0); Mean Platelet Volume 10.8 fL (9.4-12.4); Monocytes # (auto) 0.86 K/uL (0.11-0.59); Monocytes % (auto) 7.5 %; Neutrophils # (auto) 9.19 K/uL (1.40-6.50); Neutrophils % (auto) 79.9 %; Platelet Count 146 K/uL (130-400); RDW Standard Deviation 43.4 fL (36.4-46.3); Red Blood Count 3.29 M/uL (4.70-6.10); White Blood Count 11.51 K/ul (4.8-10.8)
[2023-01-08 10:05] LABS: BUN Creatinine Ratio 22.5 (10-20); Calcium 8.3 mg/dl (8.6-10.3); Creatinine Clr Calc Pharmacy 46.6 ml/min; Est GFR (African American) 47.1 ml/min; Est GFR (Non-African American) 40.7 ml/min; Potassium 4.5 mmol/L (3.5-5.1)
--- NOTE | 2023-01-08 10:11 | Hospitalist Progress Note ---
Date of Service January 08, 2023 Assessment & Plan (1) Neurogenic claudication due to lumbar spinal stenosis: Plan: 77 year old male PmHx essential HTN, HLD, CKD stage 3a, hx of urinary calculi admitted for lumbar decompression and fixation surgery. POD#2 #1 lumbar decompression bilaterally facetectomies and foraminotomies L4-L5 L5-S1. #2 posterior spinal fusion L4 S1. #3 placement posterior instrumentation L5-S1. #4 interbody fusion L5-S1. #5 placement of Spira 15 x 26 mm at L5-S1. #6 placement locally harvested morselized autograft in the posterior gutters. #7 placement of I factor combined the test interbody space and posterior gutters. EBL 350cc Hgb 11.8--> 10.3, acute blood loss anemia from surgery as well as dilutional component from IVF post-op WBC elevation w/ low grade temp, suspect atelectasis. denied any symptoms Incentive spirometer encouraged -- did get steroids w/ surgery but not since. To monitor for any issues at d/c. Could also have had low grade temp from blood loss/saturated dressings overnight however hgb stable on AM labs Checked CXR -- cardiomegaly w/o active disease in chest Consider UA however denies any symptoms of such -- messaged primary given plans for d/c later today PT/OT per primary service DVT proph: SCDs/mery redman, chemical contraindicated w/ back surgery Per patient, planning for dc today (2) Hypertension: Plan: Chemistry reviewed and kidney function at baseline BP stable 129/62 and continues hydrochlorothiazide 25mg, valsartan 160mg (3) Hyperlipidemia: Plan: Continue home atorvastatin 20mg qPM. Can hold on fish oil while inpatient. (4) Stage 3a chronic kidney disease (CKD): Plan: Kidney function acceptable, at baseline, 1.46. Did get 2L IVF post-op Monitor BMP -- labs from AM pending --> Cr 1.6 and would rec holding HCTZ for tomorrow then can resume Thursday Plan Thank you for allowing hospitalist service to participate in the care of Mr Ruiz. Hospitalist service will sign off at this time. Would have pt hold his HCTZ for tomorrow/push oral fluids. Can resume on Thursday. Message primary w/ such Please call with any questions/concerns. Admission and Anticipated Discharge Date Admission Date: January 06, 2023 Supervising Physician Co-Signing Physician Notes The patient was not seen by me. The chart was reviewed. Case discussed with CARLOS Bills. Agree with assessment and plan. His primary service will discharge him home today, January 08 Subjective eval this morning, doing well. +BM yesterday. Low grade temp documented in system -- patient denies feeling feverish, no cp/sob, dysuria. Labs from AM pending given temp but encouraged continued bowel regimen if having issues at home. No abdominal pain, nausea or vomiting reported. Anticipating dc today. Physical Exam Physical Exam: General: WD/WN male sitting up in bed resting, NAD, anticipating discharge HEENT: head normocephalic, atraumatic, trachea midline Resp: CTA, no w/c, on room air CV: RRR, no significant m/r/g, no pitting edema, stockings in place, pulses palpable GI: +BS throughout, slight distension, nontender, no guarding : no gandara MSK/Neuro: follows commands, lower extremity strength intact bilaterally, slight decrease dorsiflexion 4/5 compared to 5/5 on the right. pulses palpable, calves nontender, FANI w/ approx 20cc bloody drainage Psych: AOx3, pleasant and cooperative Results & Data Results & Data Vital Signs (Past 12 Hours) Vital Signs Temp Pulse Resp BP Pulse Ox O2 Del Method 01/08/23 09:28 37.6 C H 01/08/23 07:20 37.9 C H 73 17 129/62 92 Room Air Laboratory Results 01/08/23 01/08/23 Range/Units 09:16 09:16 WBC 11.51 H (4.8-10.8) K/ul RBC 3.29 L (4.70-6.10) M/uL Hgb 10.3 L (14.0-18.0) g/dl Hct 29.9 L (42.0-52.0) % MCV 90.9 (80.0-100.0) fL MCH 31.3 (25.0-34.0) pg MCHC 34.4 (32.0-36.0) g/dL RDW Std Deviation 43.4 (36.4-46.3) fL RDW Coeff of Jelly 13.0 (11.5-14.5) % Plt Count 146 (130-400) K/uL MPV 10.8 (9.4-12.4) fL Immature Gran % (Auto) 0.3 % Neut % (Auto) 79.9 % Lymph % (Auto) 11.0 % [place] % (Auto) 7.5 % Eos % (Auto) 1.0 % Baso % (Auto) 0.3 % Neut # (Auto) 9.19 H (1.40-6.50) K/uL Lymph # (Auto) 1.27 (1.2-3.4) K/uL [place] # (Auto) 0.86 H (0.11-0.59) K/uL Eos # (Auto) 0.12 (0-0.50) K/uL Baso # (Auto) 0.03 (0-0.2) K/uL Immature Gran # (Auto) 0.04 (0.01-0.20) K/uL Sodium Pending Potassium Pending Chloride Pending Carbon Dioxide Pending Anion Gap Pending BUN Pending Creatinine Pending Est Cr Clr Drug Dosing Pending Est GFR ( Amer) Pending Est GFR (Non-Af Amer) Pending BUN/Creatinine Ratio Pending Glucose Pending Calcium Pending PG Care Time/CCT Total # of Minutes Spent Total Time Spent with Patient: Total time spent is greater than 50% in coordination of care (as documented) at patient's floor/unit and/or counseling patient: Coding Level of Care Code 26286 SUB INP/OBS CARE 2/35MIN Diagnoses Neurogenic claudication due to lumbar spinal stenosis M48.062 Hypertension I10 Hyperlipidemia E78.5 Stage 3a chronic kidney disease (CKD) N18.31
== END 2023-01-08 13:12 | disposition home or self-care (01) | DRG 454 ==
LOC: ASU 11:05 → PACUINP 15:38 → 3W 18:05